=== PATIENT | male | born 1945 | race Caucasian/White ===

== ENCOUNTER 2018-04-16 08:44 | Outpatient (CLI) | payer MEDICARE, BC ==
[~2018-04-16 08:44] MED LIST: ASPI-1265 PO; LISI-232 PO; PRAV40TA65 PO
== END 2018-04-16 23:59 | disposition home or self-care (01) ==
LOC: RT 08:44
PROVIDERS: ATTEND Internal Medicine Critical Care Medicine
DX: J44.9 Chronic obstructive pulmonary disease, unspecified (principal); I10 Essential (primary) hypertension; E78.5 Hyperlipidemia, unspecified; M19.90 Unspecified osteoarthritis, unspecified site; I73.9 Peripheral vascular disease, unspecified; Z79.82 Long term (current) use of aspirin
CPT/HCPCS: 94618